=== PATIENT | male | born 1940 | race Caucasian/White ===

== ENCOUNTER 2019-06-15 12:13 | Inpatient (IN) | payer OTHER, MEDICARE ==
[~2019-06-15] VITALS: Ht 182.9 cm; Wt 86.2 kg
[2019-06-15 13:22] LABS: BASOPHILS PERCENT AUTO 1 % (0-2); EOSINOPHILS ABSOLUTE AUTO 0.53 K/mm3 (0.00-0.68); EOSINOPHILS PERCENT AUTO 3 % (0-6); Hematocrit 50.7 % (37.0-53.0); Hemoglobin 15.8 g/dL (13.5-17.5); IMMATURE GRAN PERCENT AUTO 2 % (0-1); LYMPHOCYTES ABSOLUTE AUTO 2.58 K/mm3 (0.84-5.20); LYMPHOCYTES PERCENT AUTO 17 % (21-46); MONOCYTES ABSOLUTE AUTO 1.04 K/mm3 (0.16-1.47); MONOCYTES PERCENT AUTO 7 % (4-13); Mean Corpuscular HGB 28.3 pg (26.0-34.0); Mean Corpuscular HGB Conc 31.2 g/dL (31.5-36.5); Mean Corpuscular Volume 91 fL (80-100); Mean Platelet Volume 9.1 fL (9.1-12.4); NEUTROPHILS ABSOLUTE AUTO 10.99 K/mm3 (1.96-9.15); NEUTROPHILS PERCENT AUTO 71 % (41-73); Platelet Count 356 K/mm3 (150-400); RDW Coefficient Variation 12.7 % (11.7-14.2); RDW Standard Deviation 40.9 fL (35.1-46.3); Red Blood Cell Count 5.59 M/mm3 (4.30-5.90); White Blood Cell Count 15.54 K/mm3 (4.00-11.30)
[2019-06-15 13:45] LABS: Alanine Aminotransfer (ALT/SGP 21 U/L (12-78); Albumin, Blood 2.5 g/dL (3.4-5.0); Albumin/Globulin Ratio 0.4 (0.8-1.8); Alk Phos 65 U/L (50-136); Anion Gap 3 mmol/L (6-16); Aspartate Aminotrans (AST/SGOT 25 U/L (12-37); Bilirubin, Total 0.3 mg/dL (0.1-1.0); Blood Urea Nitrogen 25 mg/dL (8-24); Bun/Creatinine Ratio 32.1 (12.0-20.0); CO2, Blood 35 mmol/L (21-32); Calcium, Blood 8.5 mg/dL (8.5-10.1); Chloride, Blood 100 mmol/L (98-108); Creatinine, Blood 0.78 mg/dL (0.60-1.20); Globulin, Blood 5.7 g/dL (2.2-4.0); Glomerular Filtration Rate >60 (60-); Glucose, Blood 119 mg/dL (70-99); Potassium, Blood 4.7 mmol/L (3.5-5.5); Sodium, Blood 138 mmol/L (136-145); Total Protein, Blood 8.2 g/dL (6.4-8.2); Troponin I <0.015 ng/mL (0.000-0.040)
[2019-06-15 16:06] LABS: Base Excess Venous 14.7 mmol/L; Bicarbonate Venous 34.2 mmol/L (24.0-30.0); PCO2 Venous 77.9 mmHg (38-42); pH Blood Venous 7.33 (7.34-7.37)
--- NOTE | 2019-06-15 17:45 | NUR ---
NEW ER ADMIT APPROX 1630. PT IS A/O X2-3, STATE SHORTNESS OF BREATH CONTINUES AFTER ER TX HOWEVER STATE IMPROVED. STATE INCREASES w MINIMAL EXERT, EVEN TALKING. BIOX 94% 3L. LUNGS ARE TIGHT/DECREASED, COARSE w EXP WHEEZE. TELE NSR, HRR 92. BLE EDEMA 2+. IV NS INFUSING @ 75 ML/HR. RESP PANEL COLLECTED SENT. SCHEDULED SOLUMEDROL 60MG IV GIVEN. VSS. PT SISTER FERN PARADA, STATE WILL BE BACK TO HOSP TOMORROW AFTERNOON, PT INFORMED.
[2019-06-15 18:49] LABS: U Amphetamine Screen Not Detected; U Barbituate Screen Not Detected; U Benzodiazapine Screen Not Detected; U Buprenorphine Screen Not Detected; U Cannabinoids Screen Not Detected; U Cocaine Screen Not Detected; U Methadone Screen Not Detected; U Methamphetamine Screen Not Detected; U Opiates Screen Not Detected; U Oxycodone Screen Not Detected; U Propoxyphene Screen Not Detected
[2019-06-15 18:54] LABS: Adenovirus Not Detected (NOT DETECT); Bordetella pertussis Not Detected (NOT DETECT); Chlamydophila pneumoniae Not Detected (NOT DETECT); Coronavirus 229E Not Detected (NOT DETECT); Coronavirus HKU1 Not Detected (NOT DETECT); Coronavirus NL63 Not Detected (NOT DETECT); Coronavirus OC43 Not Detected (NOT DETECT); Human Metapneumovirus Not Detected (NOT DETECT); Human Rhinovirus/Enterovirus Not Detected (NOT DETECT); Influenza A Not Detected (NOT DETECT); Influenza A/2009-H1 Not Detected (NOT DETECT); Influenza A/H1 Not Detected (NOT DETECT); Influenza A/H3 Not Detected (NOT DETECT); Influenza B Not Detected (NOT DETECT); Mycoplasma pneumoniae Not Detected (NOT DETECT); Parainfluenza Virus 1 Not Detected (NOT DETECT); Parainfluenza Virus 2 Not Detected (NOT DETECT); Parainfluenza Virus 3 Not Detected (NOT DETECT); Parainfluenza Virus 4 Not Detected (NOT DETECT); Respiratory Syncytial Virus Not Detected (NOT DETECT)
--- NOTE | 2019-06-15 21:07 | NUR ---
DOES NOT KNOW ANY OF HIS MEDICATIONS OR HIS MEDICAL HISTORY. I SPOKE TO HIS SISTER FERN, . SHE DOES NOT KNOW ANY OF HIS MEDICATIONS OR HIS MEDICAL HISTORY. SHE STATES THEY MOVED HIM UP HERE 6 MONTHS AGO FROM [facility]. SHE STATES HE HAS NEVER BEEN TO A DR THAT SHE IS AWARE OF. SHE STATES HE SERVED IN BOTH [employer] AND [employer]. [facility] RECORDS.
--- NOTE | 2019-06-16 04:09 | NUR ---
SHIFT SUMMARY: 78 Y/O MALE RESTED COMFORTABLY IN BED ALL SHIFT; PT HAS VERY STRONG BODY ODOR NOTED UPON INITIAL ENTRY TO ROOM BY NURSING STAFF; DECLINED BATH LAST NIGHT; PT ALERT AND ORIENTED X 2, ABLE TO FOLLOW ALL SIMPLE VERBAL COMMANDS; PT HAD LARGE AMOUNT CLAROS LOCKED UP BY HOSPITAL BASEBALL COACH LAST NIGHT WITH RECEIPT PLACED ON PATIENTS CHART; TELEMETRY REFLECTS NSR WITH HEART RATE 76 PER ROSA--AUTOMATION APPLICATION ENGINEER; WEARING O2 AT 3L/M PER NASAL CANNULA WITH O2 SATS AVERAGING 92%; BED ALARM APPLIED, BED LOW POSITION WITH CALL LIGHT AT SIDE.
[2019-06-16 05:37] LABS: BASOPHILS ABSOLUTE AUTO 0.02 K/mm3 (0.00-0.23); BASOPHILS PERCENT AUTO 0 % (0-2); EOSINOPHILS PERCENT AUTO 0 % (0-6); Hematocrit 45.4 % (37.0-53.0); Hemoglobin 13.8 g/dL (13.5-17.5); IMMATURE GRAN ABSOLUTE AUTO 0.23 K/mm3 (0.00-0.10); IMMATURE GRAN PERCENT AUTO 2 % (0-1); LYMPHOCYTES PERCENT AUTO 6 % (21-46); MONOCYTES PERCENT AUTO 1 % (4-13); Mean Corpuscular HGB 27.9 pg (26.0-34.0); Mean Corpuscular HGB Conc 30.4 g/dL (31.5-36.5); Mean Corpuscular Volume 92 fL (80-100); Mean Platelet Volume 9.2 fL (9.1-12.4); NEUTROPHILS ABSOLUTE AUTO 12.75 K/mm3 (1.96-9.15); NEUTROPHILS PERCENT AUTO 91 % (41-73); Platelet Count 267 K/mm3 (150-400); RDW Coefficient Variation 12.6 % (11.7-14.2); RDW Standard Deviation 41.4 fL (35.1-46.3); Red Blood Cell Count 4.94 M/mm3 (4.30-5.90)
[2019-06-16 06:37] LABS: Alanine Aminotransfer (ALT/SGP 18 U/L (12-78); Albumin, Blood 2.2 g/dL (3.4-5.0); Albumin/Globulin Ratio 0.4 (0.8-1.8); Alk Phos 54 U/L (50-136); Anion Gap 3 mmol/L (6-16); Aspartate Aminotrans (AST/SGOT 16 U/L (12-37); Bilirubin, Total 0.2 mg/dL (0.1-1.0); Blood Urea Nitrogen 32 mg/dL (8-24); Bun/Creatinine Ratio 39.6 (12.0-20.0); CO2, Blood 36 mmol/L (21-32); Chloride, Blood 101 mmol/L (98-108); Creatinine, Blood 0.81 mg/dL (0.60-1.20); Glomerular Filtration Rate >60 (60-); Glucose, Blood 162 mg/dL (70-99); Potassium, Blood 4.7 mmol/L (3.5-5.5); Sodium, Blood 140 mmol/L (136-145); Total Protein, Blood 7.2 g/dL (6.4-8.2)
--- NOTE | 2019-06-16 15:19 | NUR ---
RECIEPT FOR CLAROS & DEBIT CARD IN SAFE/SECURITY PROVIDED TO PT'S SISTER FERN PER PT REQUEST.
--- NOTE | 2019-06-16 16:37 | NUR ---
SUMMARY PT IS A/O X3, ANSWERS BASIC QUESTIONS APPROP, @ X'S MAKES UNREALISTIC STATEMENTS SUCH STATES THAT HE HAS HAD PNEUMONIA FOR 7YRS, SOMEWHAT BIZZARE. AFFECT HAS IMPROVED, LESS IRRITABLE, GENERALLY PLEASANT/CALM. BREATHING NOTICABLY IMPROVED, HE IS ABLE TO HOLD CONVERSTION W/O BECOMING SHORT OF BREATH/HYPOXIC. LUNGS CONTINUE COARSE w OCC EXP WHEEZE, COARSE WET COUGH. O2 @ 3L, BIOX 94% THIS AM. BLE CONTINUE EDEMATOUS, 2+. DR ZAMORA START IV LASIX 20MG TODAY, URINE OUTPUT IMPROVED FROM PREVIOUS DAY. PT STATE CONTINUING WEAKNESS/FATIGUE. HAS DECLINED TO OOB TO CHAIR, DECLINED SHOWER. SISTER WAS IN TO VISIT TODAY, PT RELEASED VALUABLES TO HER, RECIEPT PROVIDED TO PRESENT TO SECURITY OFFICE. VSS.
--- NOTE | 2019-06-17 00:39 | NUR ---
JESSE SOLUMEDROL RECIEVED THEN IV BEGAN LEAKING W/LAST 3MLS OF 10ML NS FLUSH. IV TO WIL DC'D AND NEW 20G IV PLACED TO BACK OF TAMMIE THEN
[2019-06-17 05:22] LABS: BASOPHILS ABSOLUTE AUTO 0.02 K/mm3 (0.00-0.23); BASOPHILS PERCENT AUTO 0 % (0-2); EOSINOPHILS PERCENT AUTO 0 % (0-6); Hematocrit 43.8 % (37.0-53.0); Hemoglobin 13.2 g/dL (13.5-17.5); IMMATURE GRAN ABSOLUTE AUTO 0.26 K/mm3 (0.00-0.10); IMMATURE GRAN PERCENT AUTO 1 % (0-1); LYMPHOCYTES ABSOLUTE AUTO 0.71 K/mm3 (0.84-5.20); LYMPHOCYTES PERCENT AUTO 4 % (21-46); MONOCYTES ABSOLUTE AUTO 0.63 K/mm3 (0.16-1.47); MONOCYTES PERCENT AUTO 3 % (4-13); Mean Corpuscular HGB 27.8 pg (26.0-34.0); Mean Corpuscular HGB Conc 30.1 g/dL (31.5-36.5); Mean Corpuscular Volume 92 fL (80-100); Mean Platelet Volume 9.4 fL (9.1-12.4); NEUTROPHILS ABSOLUTE AUTO 17.13 K/mm3 (1.96-9.15); NEUTROPHILS PERCENT AUTO 91 % (41-73); Platelet Count 244 K/mm3 (150-400); RDW Coefficient Variation 12.2 % (11.7-14.2); Red Blood Cell Count 4.75 M/mm3 (4.30-5.90); White Blood Cell Count 18.75 K/mm3 (4.00-11.30)
[2019-06-17 05:42] LABS: Albumin, Blood 2.2 g/dL (3.4-5.0); Anion Gap 1 mmol/L (6-16); Blood Urea Nitrogen 39 mg/dL (8-24); Bun/Creatinine Ratio 48.1 (12.0-20.0); CO2, Blood 38 mmol/L (21-32); Chloride, Blood 99 mmol/L (98-108); Creatinine, Blood 0.81 mg/dL (0.60-1.20); Glomerular Filtration Rate >60 (60-); Glucose, Blood 155 mg/dL (70-99); Potassium, Blood 4.5 mmol/L (3.5-5.5); Sodium, Blood 138 mmol/L (136-145)
--- NOTE | 2019-06-17 05:52 | NUR ---
SUMMARY: A/OX3 AND ANSWERS Q'S SUCCINCTLY W/A FLAT AND WITHDRAWN AFFECT. HE'S PLEASANT AND COOPERATIVE W/CARE THIS SHIFT BUT WOULDN'T ALLOW STAFF TO CHANGE LINENS WHICH HAVE VARIOUS SPILLS ON THEM. PT DENIED PAIN/COMPLAINTS AND ONLY REQUESTED SNACKS/LIQ'S THIS SHIFT. HE USED URINAL INDEPENDENTLY AND WASN'T OOB TONIGHT. RESPS ARE E/U ON 3L O2 VIA NC W/O ANY DYSPNEA OR SOB NOTED AT REST. HE HAS AN OCC MOIST COUGH W/LS REMAINING COARSE W/OCC EXP WHEEZES. RT CX'D W/BX MEDS. BLE CONTINUE EDEMATOUS AND ELEVATED IN BED. HE APPEARS GENERALLY WEAK AND FATIGUED AND PREFERRED TO BE LEFT ALONE TO SLEEP. IV STEROIDS RECIEVED AND A NEW IV REQUIRED PLACEMENT TO L.FA D/T PREVIOUS BEGINNING TO LEAK. NO ACUTE CHANGES, VSS/AFEBRILE. WCTM/REPORT TO DAY RN.
--- NOTE | 2019-06-17 18:40 | NUR ---
SHIFT SUMMARY PT HAS BEEN SLEEPING OFF AND ON ALL SHIFT. PT HAS BEEN IRRITABLE AND REFUSING CARE AT TIMES. PT COMPLAINS OF NOT BEING ABLE TO BREATH WITH ANY EXERTION OR TALKING. PT ON 3 LITERS OF OXYGEN VIA NC. PT HAD CTA THIS AFTERNOON. SEE IMAGES FOR RESULTS. PT WAS UP TO BSC WITH ASSIST AND HAD BM THIS EVENING. NO COMPLAINTS OF PAIN. NO ACUTE CHANGES THIS SHIFT. CALL LIGHT IN REACH. WILL CONTINUE TO MONITOR AND REPORT TO ONCOMING RN.
--- NOTE | 2019-06-18 02:26 | NUR ---
ELEVATED RR DURING AM VITALS PT HAD ELEVATED RR OF 34, REST OF VS ARE STABLE. ASKED PT IF HE FELT DYSPNIC & HE STATED TALKING & MOVING HIS ARMS CAUSE HIM TO FEEL SOB. PT HAS LABORED BREATHING, LUNGS HAVE CRACKLES IN THE BASES & DIM IN UPPER LOBES. HE ASKED WHY THE O2 ISN'T GETTING TO HIS LUNGS, INFORMED PT HIS SPO2 WAS 93% ON 3L, THERFORE THE O2 IS GETTING TO LUNGS. ASKED IF HE FELT ANXIOUS, PT STATED "I GET PARANOID WHEN I FEEL LIKE IM SUFFOCATED & LISTENING TO YOU TALK & TALKING TO YOU SUFFOCATES ME." INFORMED PT I WOULD GIVE HIM SOME UNINTERUPTED REST & I ALSO INFORMED CHARGE NURSE OF INCREASED RR. CALL LIGHT IN REACH. TM.
[2019-06-18 05:39] LABS: BASOPHILS ABSOLUTE AUTO 0.01 K/mm3 (0.00-0.23); BASOPHILS PERCENT AUTO 0 % (0-2); EOSINOPHILS PERCENT AUTO 0 % (0-6); Hematocrit 43.5 % (37.0-53.0); Hemoglobin 13.3 g/dL (13.5-17.5); IMMATURE GRAN ABSOLUTE AUTO 0.18 K/mm3 (0.00-0.10); IMMATURE GRAN PERCENT AUTO 1 % (0-1); LYMPHOCYTES ABSOLUTE AUTO 0.53 K/mm3 (0.84-5.20); LYMPHOCYTES PERCENT AUTO 4 % (21-46); MONOCYTES ABSOLUTE AUTO 0.23 K/mm3 (0.16-1.47); MONOCYTES PERCENT AUTO 2 % (4-13); Mean Corpuscular HGB 27.9 pg (26.0-34.0); Mean Corpuscular HGB Conc 30.6 g/dL (31.5-36.5); Mean Corpuscular Volume 91 fL (80-100); Mean Platelet Volume 9.4 fL (9.1-12.4); NEUTROPHILS ABSOLUTE AUTO 13.88 K/mm3 (1.96-9.15); NEUTROPHILS PERCENT AUTO 94 % (41-73); Platelet Count 246 K/mm3 (150-400); RDW Coefficient Variation 12.5 % (11.7-14.2); RDW Standard Deviation 41.2 fL (35.1-46.3); Red Blood Cell Count 4.76 M/mm3 (4.30-5.90); White Blood Cell Count 14.83 K/mm3 (4.00-11.30)
--- NOTE | 2019-06-18 05:49 | NUR ---
SHIFT SUMMARY PT AOX3, DENIES PAIN OR NAUSEA. REPORTS DYSPNEA W/MINIMAL EXERTION INCLUDING MOVING ARMS OR TALKING, READ PREVIOUS NOTE. TELE NSR W/HR 79. VS ARE STABLE, RR HAS DECREASED TO 18 WHILE @REST. SPO2 @93% ON 3L O2 VIA NC, LUNGS ARE DIM W/CRACKLES IN THE BASES, HAS A MOIST/CONGESTED SOUNDING COUGH VERY LITTLE MUCUS PRODUCTION @THIS TIME. PT VERY IRRITABLE & REFUSES CARE OR ANSWERING QUESTIONS STATES "THATS ENOUGH QUESTIONS." HAS EDEMA IN BLE. PT YELLS OUT WHEN HE HAS A NEED. CALL LIGHT IN REACH. WCTM.
[2019-06-18 06:23] LABS: Albumin, Blood 2.2 g/dL (3.4-5.0); Anion Gap 1 mmol/L (6-16); Blood Urea Nitrogen 37 mg/dL (8-24); Bun/Creatinine Ratio 45.5 (12.0-20.0); CO2, Blood 37 mmol/L (21-32); Calcium, Blood 8.3 mg/dL (8.5-10.1); Chloride, Blood 100 mmol/L (98-108); Creatinine, Blood 0.81 mg/dL (0.60-1.20); Glomerular Filtration Rate >60 (60-); Glucose, Blood 140 mg/dL (70-99); Phosphorus, Blood 2.5 mg/dL (2.5-4.9); Potassium, Blood 5.1 mmol/L (3.5-5.5); Sodium, Blood 138 mmol/L (136-145)
--- NOTE | 2019-06-18 17:59 | NUR ---
NO ACUTE CHANGES TO PT. HE HAS SLEPT MOST OF THE DAY . REPORTS HE IS FEELING SUFFOCATED WHEN STAFF TALK TO HIM , EVEN WHEN HE ISNT RESPONDING. THIS NURSE EXPLAINED THAT HE DOESNT HAVE TO TALK BACK, JUST USE HIS HEAD FOR YES AND NO QUESTIONS. HIS SATS HAVE BEEN WNL. PT HAS NC AT 3 LITERS. CALL LIGHT WITHIN REACH.
[2019-06-19 05:29] LABS: BASOPHILS ABSOLUTE AUTO 0.01 K/mm3 (0.00-0.23); BASOPHILS PERCENT AUTO 0 % (0-2); EOSINOPHILS PERCENT AUTO 0 % (0-6); Hematocrit 44.2 % (37.0-53.0); Hemoglobin 13.7 g/dL (13.5-17.5); IMMATURE GRAN ABSOLUTE AUTO 0.09 K/mm3 (0.00-0.10); IMMATURE GRAN PERCENT AUTO 1 % (0-1); LYMPHOCYTES ABSOLUTE AUTO 0.52 K/mm3 (0.84-5.20); LYMPHOCYTES PERCENT AUTO 5 % (21-46); MONOCYTES ABSOLUTE AUTO 0.26 K/mm3 (0.16-1.47); MONOCYTES PERCENT AUTO 3 % (4-13); Mean Corpuscular HGB 27.7 pg (26.0-34.0); Mean Corpuscular Volume 90 fL (80-100); Mean Platelet Volume 9.5 fL (9.1-12.4); NEUTROPHILS ABSOLUTE AUTO 9.56 K/mm3 (1.96-9.15); NEUTROPHILS PERCENT AUTO 92 % (41-73); Platelet Count 222 K/mm3 (150-400); RDW Coefficient Variation 12.6 % (11.7-14.2); RDW Standard Deviation 40.8 fL (35.1-46.3); Red Blood Cell Count 4.94 M/mm3 (4.30-5.90); White Blood Cell Count 10.44 K/mm3 (4.00-11.30)
[2019-06-19 05:59] LABS: Albumin, Blood 2.2 g/dL (3.4-5.0); Anion Gap 2 mmol/L (6-16); Blood Urea Nitrogen 46 mg/dL (8-24); Bun/Creatinine Ratio 55.4 (12.0-20.0); CO2, Blood 39 mmol/L (21-32); Chloride, Blood 95 mmol/L (98-108); Creatinine, Blood 0.83 mg/dL (0.60-1.20); Glomerular Filtration Rate >60 (60-); Glucose, Blood 191 mg/dL (70-99); Magnesium, Blood 2.3 mg/dL (1.6-2.4); Phosphorus, Blood 2.6 mg/dL (2.5-4.9); Potassium, Blood 5.3 mmol/L (3.5-5.5); Sodium, Blood 136 mmol/L (136-145)
--- NOTE | 2019-06-19 07:40 | NUR ---
SHIFT SUMMARY AOX3. IRRITABLE W/CARE @TIMES & REFUSES SOME CARE. TELE IS NSR HR 74. VSS. ON 3L O2 W/SPO2 >90%. PT DOES GET DYPNIC W/MINIMAL EXERTION INCLUDING TALKING OR MOVING IN BED. LUNGS ARE DIM T/O, PT HAS MOIST/CONGESTED COUGH W/SMALL AMOUNT THICK YELLOW SPUTUM. PT INCONTINENT OF BM & PT WAS GIVEN BED BATH. CALL LIGHT IN REACH.
--- NOTE | 2019-06-19 18:19 | NUR ---
Brief Pt visit. Pt resting in bed upon arrival. He appears comfortable and states he is finished with his dinner. Pt states he is attempting to rest and requests for this RN to visit at a later time. Delivered warm blanket per Pt request. Reviewed Pt's chart. Palliative Care will remain available.
--- NOTE | 2019-06-19 18:19 | NUR ---
PT HAS SLEPT MOST OF THE DAY. HE COMPLAINS OF SOB WHILE SATING IN THE 90'S ON 3L OS. PT REFUSES TO ALLOW STAFF TO HELP CLEAN HIM AND HAS REFUSED ALL BATHS OR SHOWER OFFERS. NO ACUTE CHANGES.
--- NOTE | 2019-06-19 19:54 | NUR ---
1909: RECEIVED REPORT AT BEDSIDE. 1954: SHIFT ASSESSMENT COMPLETED. PT SITTING UP IN BED. VOIDED 450 ML. IV SITES FLUSHED AND WORKING. PT AOX4, DENIES PAIN/N/V/D. ACTIVELY USING ACCESSORY MUSCLES WHEN BREATHING BUT SATING IN THE 90s. LUNG SOUNDS ARE INSPIRATORY, EXPIRATORY WHEEZES T/O. 2+ EDEMA B/L LEs - ELEVATED LEGS ON PILLOWS. PT REQ TO BE ALLOWED TO REST MUCH POSSIBLE. WILL COORDINATE WITH VICE PRESIDENT COMPLIANCE FOR ROUNDS. BED LOW AND LOCKED. CALL CORRGIAN WITHIN REACH.
--- NOTE | 2019-06-20 06:21 | NUR ---
PATIENT RESTED QUIETLY THRU THE NIGHT. PER HIS REQ HE WISHED TO BE DISTURBED LITTLE POSSIBLE. HE RECEVED HISD MEDS PER EMAR, AND BREATHING TREATMENTS WERE OFFERED BUT HE REFUSED HTESE. OTHERWISE PLEASANT AND COPPERATIVE WITH CARE. VASYL LOW AND LOCKED. CALL CORRIGAN WITHIN REACH
--- NOTE | 2019-06-21 00:33 | NUR ---
PATIENT IS POLITE AND COOPERATIVE BUT HAS ABXIETY WHEN ASKED ABOUT BATHING. PATIENT HAS A FOUL URINE SMELL AND I EXPLAINED THAT HE CAN BATHE HIMSELF BUT WE NEED TO CHANGE THE BED LINEN AND CHECK HIS SKIN IF POSSIBLE. HE HAS REFUSED SO FAR. WILL CONTINUE TO TRY TO GET HIM TO AGREE.
--- NOTE | 2019-06-21 04:22 | NUR ---
END OF SHIFT NOTE: PATIENT IS QUIET BUT BECOMES QUITE ANXIOUS WHEN PRESSED TO BATHE. WE OFFERED TO BRING HIM WHAT HE NEEDS SO HE CAN BATHE HIMESELF, BUT PATIENT DISOPLAYED INCREASED ANXIETY SO PERHAPS AFTER BREAKFAST THEY WILL HAVE BETTER LUCK
--- NOTE | 2019-06-21 16:57 | NUR ---
SHIFT SUMMARY- PT IS A/O. PT WORKED WITH PHYSICAL THERAPY AND WAS UP TO THE CHAIR, THIS MORNING AND WORKED WITH OCCUPATIONAL THERAPY THIS AFTERNOON. PT EXPRESSES THAT HE DOES NOT WANT TO TALK, OR BE SPOKEN TO BECAUSE HE CANNOT BREATH WHEN YOU ARE TALKING TO HIM. PT SATS MAINTAING WELL. HE IS EATING AND DRINKING WELL. PT IS REFUSING TO BE CLEANED. WAS ABLE TO CHANGE HIS LINENS WHICH WERE WET.
[2019-06-22 07:24] LABS: BASOPHILS ABSOLUTE AUTO 0.02 K/mm3 (0.00-0.23); BASOPHILS PERCENT AUTO 0 % (0-2); EOSINOPHILS ABSOLUTE AUTO 0.02 K/mm3 (0.00-0.68); EOSINOPHILS PERCENT AUTO 0 % (0-6); Hemoglobin 14.7 g/dL (13.5-17.5); IMMATURE GRAN ABSOLUTE AUTO 0.16 K/mm3 (0.00-0.10); IMMATURE GRAN PERCENT AUTO 1 % (0-1); LYMPHOCYTES ABSOLUTE AUTO 0.86 K/mm3 (0.84-5.20); LYMPHOCYTES PERCENT AUTO 6 % (21-46); MONOCYTES PERCENT AUTO 7 % (4-13); Mean Corpuscular HGB 28.3 pg (26.0-34.0); Mean Corpuscular Volume 89 fL (80-100); NEUTROPHILS ABSOLUTE AUTO 11.67 K/mm3 (1.96-9.15); NEUTROPHILS PERCENT AUTO 85 % (41-73); Platelet Count 192 K/mm3 (150-400); RDW Coefficient Variation 12.6 % (11.7-14.2); RDW Standard Deviation 40.4 fL (35.1-46.3); Red Blood Cell Count 5.19 M/mm3 (4.30-5.90); White Blood Cell Count 13.73 K/mm3 (4.00-11.30)
--- NOTE | 2019-06-22 07:35 | NUR ---
SHIFT SUMMARY PATIENT ALERT AND ORIENTED. WAS RESISTANT TO CARE FROM CARE STAFF. DID NOT WANT TO TALK EITHER SAYING THAT IT CAUSED HIS BREATHING TO GET WORSE. PATIENT CURRENTLY ON 3 LITERS O2 VIA NASAL CANULA. IV PATENT AND FLUSHED. BED IN LOWEST POSITION WITH WHEELS LOCKED. CALL LIGHT WITHIN REACH. REPORT GIVEN TO ONCOMING RN.
[2019-06-22 07:41] LABS: Anion Gap 3 mmol/L (6-16); Blood Urea Nitrogen 46 mg/dL (8-24); Bun/Creatinine Ratio 59.2 (12.0-20.0); CO2, Blood 40 mmol/L (21-32); Calcium, Blood 7.4 mg/dL (8.5-10.1); Chloride, Blood 91 mmol/L (98-108); Creatinine, Blood 0.78 mg/dL (0.60-1.20); Glomerular Filtration Rate >60 (60-); Glucose, Blood 135 mg/dL (70-99); Potassium, Blood 3.9 mmol/L (3.5-5.5); Sodium, Blood 134 mmol/L (136-145)
--- NOTE | 2019-06-22 19:05 | NUR ---
PT. PLEASANT AND COOPERATIVE TODAY. ALLOWED US TO GIVE A BED BATH AND BEDDING CHANGE. WOULD NOT ALLOW US TO WASH HIS PRIVATE PARTS, HE DID THAT HIMSELF.
--- NOTE | 2019-06-23 05:05 | NUR ---
SHIFT SUMMARY PATIENT PLEASANT TO WORK WITH, ALERT AND ORIENTED. STATED THAT HE WAS BREATHING MUCH BETTER TONIGHT. HE IS CURRENTLY ON 3 LITERS OF O2 VIA NASAL CANULA. IV PATENT AND FLUSHED. BED IN LOWEST POSITION WITH WHEELS LOCKED. CALL LIGHT AND BELONGINGS WITHIN REACH. REPORT GIVEN TO ONCMARICRUZ KELLEY.
--- NOTE | 2019-06-23 19:24 | NUR ---
PT. SITTING IN BED EATING. PT. HAS EATEN ALL DAY LONG. PT. UP TO BSC WITH FWW AND I PERSON ASSIST. PT. HAD A LARGE BM, HAD GOT HIMSELF BACK IN BED BEFORE I GOT BACK IN THE ROOM. PT. ALSO GIVEN ANOTHER BEDBATH AND HIS BEDDING WAS COMPLETELY CHANGED.
[2019-06-24 06:03] LABS: BASOPHILS ABSOLUTE AUTO 0.01 K/mm3 (0.00-0.23); BASOPHILS PERCENT AUTO 0 % (0-2); EOSINOPHILS ABSOLUTE AUTO 0.09 K/mm3 (0.00-0.68); EOSINOPHILS PERCENT AUTO 1 % (0-6); Hematocrit 43.1 % (37.0-53.0); Hemoglobin 13.6 g/dL (13.5-17.5); IMMATURE GRAN ABSOLUTE AUTO 0.17 K/mm3 (0.00-0.10); IMMATURE GRAN PERCENT AUTO 1 % (0-1); LYMPHOCYTES ABSOLUTE AUTO 1.47 K/mm3 (0.84-5.20); LYMPHOCYTES PERCENT AUTO 11 % (21-46); MONOCYTES ABSOLUTE AUTO 0.96 K/mm3 (0.16-1.47); MONOCYTES PERCENT AUTO 7 % (4-13); Mean Corpuscular HGB 28.2 pg (26.0-34.0); Mean Corpuscular HGB Conc 31.6 g/dL (31.5-36.5); Mean Corpuscular Volume 89 fL (80-100); Mean Platelet Volume 10.8 fL (9.1-12.4); NEUTROPHILS ABSOLUTE AUTO 10.84 K/mm3 (1.96-9.15); NEUTROPHILS PERCENT AUTO 80 % (41-73); Platelet Count 189 K/mm3 (150-400); RDW Coefficient Variation 12.6 % (11.7-14.2); RDW Standard Deviation 40.7 fL (35.1-46.3); Red Blood Cell Count 4.82 M/mm3 (4.30-5.90); White Blood Cell Count 13.54 K/mm3 (4.00-11.30)
--- NOTE | 2019-06-24 06:17 | NUR ---
SHIFT SUMMARY PATIENT ALERT AND ORIENTED. WAS HUNGRY AND ATE MULTIPLE SNACKS OVERNIGHT AND WAS VERY PLEASANT TO WORK WITH. PATIENT CURRENTLY ON 3 LITERS O2 VIA NASAL CANULA. IV PATENT AND FLUSHED. BED IN THE LOWEST POSITION WITH WHEELS LOCKED AND ALARM ON. CALL LIGHT AND BELONGINGS WITHIN REACH. REPORT GIVEN TO ONCOMING RN.
[2019-06-24 06:22] LABS: Anion Gap 4 mmol/L (6-16); Blood Urea Nitrogen 48 mg/dL (8-24); Bun/Creatinine Ratio 54.5 (12.0-20.0); CO2, Blood 40 mmol/L (21-32); Calcium, Blood 7.6 mg/dL (8.5-10.1); Chloride, Blood 92 mmol/L (98-108); Creatinine, Blood 0.88 mg/dL (0.60-1.20); Glomerular Filtration Rate >60 (60-); Glucose, Blood 118 mg/dL (70-99); Potassium, Blood 3.8 mmol/L (3.5-5.5); Sodium, Blood 136 mmol/L (136-145)
--- NOTE | 2019-06-24 14:03 | NUR ---
PERMISSION FOR CARE I, BLADE KATZ, A [facility] [place] [employer], RECEIVED PERMISSION FROM THIS PATIENT ON 06/24/2019 TO PROVIDE CARE FOR HIM ON 06/25/2019.
--- NOTE | 2019-06-24 17:00 | NUR ---
SHIFT SUMMARY- PT IS ALERT AND PLESANT. EATING AND DRINKING WELL. HE REFUSED OT THIS MORNING, BUT PARTICIPATED WITH PT THIS AFTERNOON. HE PULLED HIS IV. REPLACE WITH A 20G IN THE LEFT WRIST. CHANGED LINENS TODAY, BUT PT REFUSED SHOWER. HE SLEPT INTERMITENTLY THROUGHOUT THIS SHIFT. PT SISTER CALLED FOR AN UPDATE.
--- NOTE | 2019-06-25 04:41 | NUR ---
SHIFT SUMMARY ADMITTED FOR COPD EXACERBATION. FULL CODE. 2 LPM O2 VIA NC. REFUSING SCD'S. LOVENOX IN EMAR. PNEUMONIA. USES A URINAL. WORKED WITH PHYSICAL THERAPY. REGULAR DIET, A&O X3-4. WATCHING LABS. ENCOURAGE SESSIONS WITH PT/OT. HX: LIVES W/SISTER, PREVIOUSLY HOMELESS. COPD. CALLED OUT FOR NEEDS RATHER THAN USED CALL BUTTON THIS SHIFT.
[2019-06-25 05:37] LABS: BASOPHILS ABSOLUTE AUTO 0.01 K/mm3 (0.00-0.23); BASOPHILS PERCENT AUTO 0 % (0-2); EOSINOPHILS PERCENT AUTO 3 % (0-6); Hemoglobin 12.9 g/dL (13.5-17.5); IMMATURE GRAN ABSOLUTE AUTO 0.15 K/mm3 (0.00-0.10); IMMATURE GRAN PERCENT AUTO 1 % (0-1); LYMPHOCYTES ABSOLUTE AUTO 1.99 K/mm3 (0.84-5.20); LYMPHOCYTES PERCENT AUTO 18 % (21-46); MONOCYTES ABSOLUTE AUTO 0.79 K/mm3 (0.16-1.47); MONOCYTES PERCENT AUTO 7 % (4-13); Mean Corpuscular HGB 27.9 pg (26.0-34.0); Mean Corpuscular HGB Conc 30.7 g/dL (31.5-36.5); Mean Corpuscular Volume 91 fL (80-100); Mean Platelet Volume 10.6 fL (9.1-12.4); NEUTROPHILS ABSOLUTE AUTO 7.81 K/mm3 (1.96-9.15); NEUTROPHILS PERCENT AUTO 71 % (41-73); Platelet Count 163 K/mm3 (150-400); RDW Coefficient Variation 12.7 % (11.7-14.2); RDW Standard Deviation 41.4 fL (35.1-46.3); Red Blood Cell Count 4.63 M/mm3 (4.30-5.90); White Blood Cell Count 11.05 K/mm3 (4.00-11.30)
[2019-06-25 05:52] LABS: Anion Gap 3 mmol/L (6-16); Blood Urea Nitrogen 37 mg/dL (8-24); Bun/Creatinine Ratio 49.9 (12.0-20.0); CO2, Blood 38 mmol/L (21-32); Calcium, Blood 7.8 mg/dL (8.5-10.1); Chloride, Blood 96 mmol/L (98-108); Creatinine, Blood 0.74 mg/dL (0.60-1.20); Glomerular Filtration Rate >60 (60-); Glucose, Blood 102 mg/dL (70-99); Potassium, Blood 3.8 mmol/L (3.5-5.5); Sodium, Blood 137 mmol/L (136-145)
[2019-06-25] MEDS ORDERED: ALBU2.5V5 INH (12:20)
[2019-06-25] MEDS ORDERED: Mucinex1200 MG PO (12:22)
[2019-06-25] MEDS ORDERED: Duoneb 2.5-0.5 M3 ML INH (12:23)
[2019-06-25] MEDS ORDERED: Prednisone10 MG PO (12:25)
[2019-06-25] MEDS ORDERED: AZIT250 PO (12:26)
--- NOTE | 2019-06-25 14:52 | NUR ---
PT DISCHARGED FROM UNIT, VIA WHEELCHAIR. LEFT WITH SISTER. IV REMOVED. DISCHARGE INSTRUCTIONS REVIEWED. INSTRUCTIONS GIVEN TO SET UP PRIMARY CARE. MEDICATIONS FAXED.
== END 2019-06-25 14:05 | disposition home or self-care (01) | DRG 871 ==
LOC: ER 12:13 → MEDS 15:12
PROVIDERS: Family Medicine; Internal Medicine; Nurse Practitioner Acute Care; Physician Assistant; ADMIT Hospitalist
DX: A41.9 Sepsis, unspecified organism (principal); J18.9 Pneumonia, unspecified organism; J96.01 Acute respiratory failure with hypoxia; J44.1 Chronic obstructive pulmonary disease with (acute) exacerbation; J44.0 Chronic obstructive pulmonary disease with (acute) lower respiratory infection; D64.9 Anemia, unspecified; R73.9 Hyperglycemia, unspecified; Z99.81 Dependence on supplemental oxygen; Z87.891 Personal history of nicotine dependence; R60.9 Edema, unspecified; T38.0X5A Adverse effect of glucocorticoids and synthetic analogues, initial encounter; R53.81 Other malaise
CPT/HCPCS: 0099U; 36415; 71046; 71260; 80048; 80053; 80069; 82803; 83036; 83605; 83735; 83880; 84145; 84484; 85025; 85379; 87040; 90686; 93005; 93010; 93306; 94640; 94664; 94667; 94668; 94760; 94761; 96365; 96367; 96375; 97116; 97162; 97166; 97530; 97535; 98960; 99285-25; J0456; J0696; J1650; J1940; J2930; J7030; J7050; J7512; Q9967

== ENCOUNTER → 2019-08-27 | Outpatient (CLI) | payer MEDICARE ==
[~2019-08-27] MED LIST: ALBU2.5V5 INH; AZIT250 PO; Duoneb 2.5-0.5 M3 ML INH; Mucinex1200 MG PO; Prednisone10 MG PO
[2019-08-27 15:42] LABS: BASOPHILS ABSOLUTE AUTO 0.04 K/mm3 (0.00-0.23); BASOPHILS PERCENT AUTO 1 % (0-2); EOSINOPHILS ABSOLUTE AUTO 0.44 K/mm3 (0.00-0.68); EOSINOPHILS PERCENT AUTO 6 % (0-6); Hematocrit 44.1 % (37.0-53.0); Hemoglobin 13.9 g/dL (13.5-17.5); IMMATURE GRAN ABSOLUTE AUTO 0.01 K/mm3 (0.00-0.10); IMMATURE GRAN PERCENT AUTO 0 % (0-1); LYMPHOCYTES ABSOLUTE AUTO 2.36 K/mm3 (0.84-5.20); LYMPHOCYTES PERCENT AUTO 32 % (21-46); MONOCYTES ABSOLUTE AUTO 0.67 K/mm3 (0.16-1.47); MONOCYTES PERCENT AUTO 9 % (4-13); Mean Corpuscular HGB 28.3 pg (26.0-34.0); Mean Corpuscular HGB Conc 31.5 g/dL (31.5-36.5); Mean Corpuscular Volume 90 fL (80-100); Mean Platelet Volume 10.5 fL (9.1-12.4); NEUTROPHILS ABSOLUTE AUTO 3.97 K/mm3 (1.96-9.15); NEUTROPHILS PERCENT AUTO 53 % (41-73); Platelet Count 142 K/mm3 (150-400); RDW Coefficient Variation 12.7 % (11.7-14.2); RDW Standard Deviation 41.7 fL (35.1-46.3); Red Blood Cell Count 4.92 M/mm3 (4.30-5.90); White Blood Cell Count 7.49 K/mm3 (4.00-11.30)
[2019-08-27 16:14] LABS: Alanine Aminotransfer (ALT/SGP 96 U/L (12-78); Albumin, Blood 3.3 g/dL (3.4-5.0); Albumin/Globulin Ratio 0.8 (0.8-1.8); Alk Phos 70 U/L (50-136); Anion Gap -2 mmol/L (6-16); Aspartate Aminotrans (AST/SGOT 82 U/L (12-37); Bilirubin, Total 0.5 mg/dL (0.1-1.0); Blood Urea Nitrogen 20 mg/dL (8-24); Bun/Creatinine Ratio 32.3 (12.0-20.0); CO2, Blood 41 mmol/L (21-32); Calcium, Blood 8.6 mg/dL (8.5-10.1); Chloride, Blood 97 mmol/L (98-108); Creatinine, Blood 0.62 mg/dL (0.60-1.20); Globulin, Blood 4.2 g/dL (2.2-4.0); Glomerular Filtration Rate >60 (60-); Glucose, Blood 113 mg/dL (70-99); Potassium, Blood 4.3 mmol/L (3.5-5.5); Sodium, Blood 136 mmol/L (136-145); Total Protein, Blood 7.5 g/dL (6.4-8.2)
== END | disposition home or self-care (01) ==
LOC: LAB SHORT 14:12 → LAB 14:12
PROVIDERS: Physician Assistant
DX: R60.9 Edema, unspecified (principal)
CPT/HCPCS: 80053; 83880; 85025